=== PATIENT | female | born 1975 | race Caucasian/White ===

== ENCOUNTER → 2017-04-26 | Outpatient (CLI) | payer SELFPAY ==
[~2017-04-26] MED LIST: BUPROPION HCL150 M1 PO; CYMBALTA PO; CYMBALTA30 MG PO; FINASTERIDE5 M1 PO; FIORICET1 TAB PO; FISH OIL 1,0001 EACH PO; MAGNESIUM400 MG PO; MAXALT MLT10 MG/TAB PO; NEXIUM PO; PROPRANOLOL HCL80 M1 PO; SILENOR6 MG PO; VERAPAMIL ER240 M1 PO; VITAMIN D2000 UNIT PO; WELLBUTRIN XL PO
== END | disposition home or self-care (01) ==
LOC: CBAR 06:18
DX: E66.01 Morbid (severe) obesity due to excess calories (principal)
CPT/HCPCS: 76000

== ENCOUNTER → 2017-04-26 | Outpatient (CLI) | payer BC ==
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
== END | disposition home or self-care (01) ==
LOC: CRAD 11:55
DX: M53.2X2 Spinal instabilities, cervical region (principal)
CPT/HCPCS: 72040; 72100

== ENCOUNTER → 2017-04-26 | Outpatient (CLI) | payer BC ==
[2017-04-26 13:00] LABS: CHOLESTEROL 209 mg/dL (0-200); GLUCOSE FASTING 78 mg/dL (70-110); HDL CHOLESTEROL 48 mg/dL (35-95); LDL CHOLESTEROL 110 mg/dL (-130); LDL/HDL RATIO 2 RATIO (0-4); TRIGLYCERIDES 253 mg/dL (10-160)
== END | disposition home or self-care (01) ==
LOC: CLAB 11:45
PROVIDERS: Surgery
DX: E66.01 Morbid (severe) obesity due to excess calories (principal)
CPT/HCPCS: 36415; 80061; 82947